=== PATIENT | female | born 1970 ===

== ENCOUNTER 2019-10-21 09:01 | Emergency (ER) | payer OTHER ==
--- NOTE | 2019-10-21 10:09 | ED Physician Documentation ---
PD HPI LOWER EXT INJURY - Stated complaint Stated Complaint: LT CALF PX - Chief complaint Chief Complaint: Ext Problem - History obtained from History obtained from: Patient - History of Present Illness PD HPI LOW EXT INJURY LOCATION: Left, Ankle (lateral aspect), Calf Type of injury: No: Fall, Twist, Blunt / blow Where injury occurred: Home Timing - onset: How many days ago (4) Timing - duration: Days (5) Timing - details: Gradual onset, Still present Improved by: Rest Worsened by: Moving (walking on foot, eversion of ankle, dorsiflexion of ankle.), Palpating Associated symptoms: Swelling. No: Weakness, Numbness, Discolored Similar symptoms before: Has not had sx before (not in that location. She had pain dorsum right foot of unknown cause about 1-2 years ago, that lasted several days and resolved.) Recently seen: Not recently seen Review of Systems Constitutional: denies: Fever, Chills, Myalgias Nose: denies: Rhinorrhea / runny nose, Congestion Throat: denies: Sore throat Respiratory: denies: Cough Skin: denies: Rash, Lesions, Abrasion (s) Musculoskeletal: denies: Back pain Neurologic: denies: Focal weakness, Numbness PD PAST MEDICAL HISTORY - Past Medical History Cardiovascular: None Respiratory: None Endocrine/Autoimmune: None Musculoskeletal: None - Present Medications Home Medications: Ambulatory Orders Medication Instructions Recorded Confirmed Hydrocodone/Acetaminophen [[place] 1 each PO Q6H PRN #15 tablet 10/21/19 5-325 Tablet] Naproxen 500 mg PO BID #20 tablet 10/21/19 dexAMETHasone [Decadron] 4 mg PO DAILY #5 tablet 10/21/19 - Allergies Allergies/Adverse Reactions: Allergies Allergy/AdvReac Type Severity Reaction Status Date / Time No Known Drug Allergies Allergy Verified 10/21/19 09:16 - Living Situation Living Arrangement: reports: At home PD ED PE NORMAL - Vitals Vital signs reviewed: Yes - General General: Alert and oriented X 3, Well developed/nourished - Neck Neck: Supple, no meningeal sign, No adenopathy - Cardiac Cardiac: RRR, No murmur - Respiratory Respiratory: Clear bilaterally - Back Back: No spinal TTP - Derm Derm: Normal color, Warm and dry, No rash - Extremities Extremities: No edema, Other (lateral left ankle and distal lower leg with tenderness but no redness, rash, sores. Achilles not tender. No effusion of ankle. ). No: Normal ROM s pain - Neuro Neuro: Alert and oriented X 3, No motor deficit, No sensory deficit Results - Vitals Vitals: Vital Signs - 24 hr 10/21/19 10/21/19 09:05 14:18 Temperature 36.5 C Heart Rate 78 80 Respiratory 16 14 Rate Blood Pressure 141/81 H 135/78 H O2 Saturation 97 98 Oxygen O2 Source Room air - Labs Labs: Laboratory Tests 10/21/19 10/21/19 12:00 12:00 WBC 7.5 RBC 4.37 Hgb 13.2 Hct 39.5 MCV 90.4 MCH 30.2 MCHC 33.4 RDW 12.2 Plt Count 253 MPV 9.5 Neut # (Auto) 6.2 Lymph # (Auto) 0.8 L [place] # (Auto) 0.4 Eos # (Auto) 0.1 Baso # (Auto) 0.1 Absolute Nucleated RBC 0.00 Nucleated RBC % 0.0 ESR 4 PD MEDICAL DECISION MAKING - ED course Complexity details: reviewed results, considered differential (tendonitis, can get duplex to eval for DVT. No rash to suggest shingles. No skin sores nor redness to suggest infection. Consider gout. ), d/w patient Departure - Departure Disposition: 01 Home, Self Care Clinical Impression: Peroneal tendonitis of left lower extremity Condition: Stable Record reviewed to determine appropriate education?: Yes Instructions: ED Sprain Ankle Prescriptions: dexAMETHasone [Decadron] 4 mg PO DAILY #5 tablet Hydrocodone/Acetaminophen [[place] 5-325 Tablet] 1 each PO Q6H PRN #15 tablet PRN Reason: Pain Naproxen 500 mg PO BID #20 tablet Comments: Use the ankle brace and crutches as needed for discomfort of movement and weightbearing. Progress weightbearing as tolerated over the next several days. Use anti-inflammatories as prescribed. Add Tylenol or hydrocodone if needed for pain. Recheck with your primary care if not improving well over the next 3 to 5 days and resolution by 5 to 7 days. Return if worsening or other symptoms. Discharge Date/Time: 10/21/19 14:19
[2019-10-21] MEDS ORDERED: IBUPROFEN 600 MG TABLET PO STA (10:27)
[2019-10-21] MEDS ORDERED: ACETAMINOPHEN 325 MG TABLET PO STA (10:27)
[2019-10-21] MEDS ORDERED: CHERRY SYRUP 10 ML UDC PO ONE (10:27)
[2019-10-21] MEDS ORDERED: DEXAMETHASONE 10 MG/ML VIAL PO STA (10:27)
--- NOTE | 2019-10-21 11:29 | Ultrasound Report ---
Reason: left ankle/lower leg pain Procedure Date: 10/21/2019 Accession Number: [id number] / [id number] Procedure: US - Duplex Ext Veins Left CPT Code: Final Report FULL RESULT: EXAM: LEFT LOWER EXTREMITY VENOUS ULTRASOUND EXAM DATE: 10/21/2019 11:03 AM. CLINICAL HISTORY: Left ankle/lower leg pain. COMPARISON: None. TECHNIQUE: Real-time sonographic vascular imaging was performed by the lockstitch topstitcher through the lower extremity utilizing both color-flow and Doppler spectral analysis. Multiple dealer compliance representative static images were saved for review. FINDINGS: Common Femoral Vein (CFV): Normal. CFV-GSV Junction: Normal. Profunda Femoral Vein (PFV): Normal. Femoral Vein (FV) Prox: Normal. Femoral Vein (FV) Mid: Normal. Femoral Vein (FV) Dist: Normal. Popliteal Vein: Normal. Posterior Tibial Veins: Normal. Peroneal Veins: Normal. Other: None. IMPRESSION: No evidence for deep venous thrombosis. RADIA
[2019-10-21 12:07] LABS: BASOPHILS # (AUTO) 0.1 10^3/uL (0.0-0.1); BASOPHILS % (AUTO) 0.7 %; EOSINOPHILS # (AUTO) 0.1 10^3/uL (0.0-0.7); EOSINOPHILS % (AUTO) 0.8 %; HGB - HEMOGLOBIN 13.2 g/dL (12.0-16.0); LYMPHOCYTES # (AUTO) 0.8 10^3/uL (1.5-3.5); LYMPHOCYTES % (AUTO) 10.7 %; MEAN CORPUSCULAR HEMOGLOBIN 30.2 pg (27.0-31.0); MEAN CORPUSCULAR HGB CONC 33.4 g/dL (32.0-36.0); MEAN CORPUSCULAR VOLUME 90.4 fL (81.0-99.0); MEAN PLATELET VOLUME 9.5 fL (7.9-10.8); MONOCYTES # (AUTO) 0.4 10^3/uL (0.0-1.0); MONOCYTES % (AUTO) 5.3 %; NEUTROPHILS # (AUTO) 6.2 10^3/uL (1.5-6.6); NEUTROPHILS % (AUTO) 82.2 %; PLT - PLATELET COUNT 253 10^3/uL (130-450); RED BLOOD COUNT 4.37 10^6/uL (4.20-5.40); RED CELL DISTRIBUTION WIDTH 12.2 % (12.0-15.0); WHITE BLOOD COUNT 7.5 x10^3/uL (4.8-10.8)
[2019-10-21 14:18] VITALS: BP 135/78
== END 2019-10-21 14:19 | disposition home or self-care (01) ==
LOC: ED 09:01
DX: M76.72 Peroneal tendinitis, left leg (principal)
CPT/HCPCS: 36415; 85025; 85651; 93971; 99284; A9270

== ENCOUNTER 2024-03-18 10:21 | Emergency (ER) | payer OTHER ==
[2024-03-18 10:38] VITALS: BP 113/92; O2SAT 99
--- NOTE | 2024-03-18 12:29 | ED Physician Documentation ---
PD HPI LOWER EXT INJURY - Stated complaint Stated Complaint: LT CALF PX/SWELLING - Chief complaint Chief Complaint: Ext Problem - History obtained from History obtained from: Patient - Additional information Additional information: Patient is a 53-year-old female without significant medical history presenting for evaluation of left calf pain since running a 5K 2 weeks ago. Denies fall. Has been having pain with ambulation. Last night noticed some swelling so went to the [facility] today and was directed to the ER for evaluation of a DVT. Denies history of prior DVTs or PE. Review of Systems Constitutional: denies: Fever Cardiac: denies: Chest pain / pressure Respiratory: denies: Dyspnea Musculoskeletal: reports: Extremity pain PD PAST MEDICAL HISTORY - Past Medical History Past Medical History: No Cardiovascular: None Respiratory: None Endocrine/Autoimmune: None Musculoskeletal: None - Past Surgical History Past Surgical History: Yes Ortho: Shoulder arthroplasty - Present Medications Home Medications: Ambulatory Orders Medication Instructions Recorded Confirmed No Known Home Medications 03/18/24 03/18/24 - Allergies Allergies/Adverse Reactions: Allergies Allergy/AdvReac Type Severity Reaction Status Date / Time No Known Drug Allergies Allergy Verified 03/18/24 10:29 - Social History Does the pt smoke?: No Smoking Status: Never smoker Does the pt drink ETOH?: Yes Does the pt have substance abuse?: No - Immunizations Immunizations are current?: Yes - POLST Patient has POLST: No PD ED PE NORMAL - General General: Alert and oriented X 3, No acute distress, Well developed/nourished - HEENT HEENT: Atraumatic, Moist mucous membranes, Pharynx benign - Neck Neck: Supple, no meningeal sign - Cardiac Cardiac: Strong equal pulses - Respiratory Respiratory: No respiratory distress - Derm Derm: Warm and dry - Extremities Extremities: Other (Mild tenderness to left calf, compartments of extremity are soft, distal pulses intact, no redness, Pain in calf with plantarflexion) - Neuro Neuro: No motor deficit, Normal speech Results - Vitals Vitals: Vital Signs - 24 hr 03/18/24 10:26 Temperature 36.4 C L Heart Rate 84 Respiratory 20 Rate Blood Pressure 113/92 H O2 Saturation 99 Oxygen O2 Source Room air PD Medical Decision Making - ED course Complexity details: reviewed results, d/w patient ED course: Patient with left calf pain for 2 weeks with mild swelling. Distal pulses intact and no signs of infection. Compartments of extremity are soft.No bony tenderness to suggest fracture. Ultrasound was obtained and is negative for DVT. Patient counseled on continued supportive care and was given Paul wrap and crutches here. She is advised on concerning symptoms to return for. Departure - Departure Disposition: 01 Home, Self Care Clinical Impression: Strain of left calf muscle Condition: Stable Instructions: ED Strain Muscle Ext Comments: Your U/S does not shows a blood clot called a DVT. Your symptoms are likely related to a muscle strain. We have applied an Paul wrap and also given you crutches so that you can try to stay off the leg over the next few days to see if this helps improve your symptoms. Continue with Acetaminophen or ibuprofen as needed for pain.Return to the ER with any worsening symptoms. Forms: PCP List Discharge Date/Time: 03/18/24 12:50
--- NOTE | 2024-03-18 13:54 | Ultrasound Report ---
PROCEDURE: Duplex Ext Veins Left INDICATIONS: L calf pain/swelling TECHNIQUE: Real-time imaging, as well as color and pulse Doppler interrogation, were performed of the lower extr emity deep veins from the inguinal ligament to the popliteal fossa. Attempted visualization of the ca lf veins was performed. COMPARISON: None. FINDINGS: The deep veins are normally compressible, and free of intraluminal thrombus. Color and pu lse Doppler demonstrate normal phasic intraluminal flow. There is normal augmentation response to di stal compression maneuver. IMPRESSION: No deep venous thrombosis of the visualized lower extremity. Reviewed by: Ba Spencer MD on 03/18/2024 1:53 PM PDT Approved by: Ba Spencer MD on 03/18/2024 1:53 PM PDT Station ID: [id number]
== END 2024-03-18 12:50 | disposition home or self-care (01) ==
LOC: ED 10:21
DX: S86.812A Strain of other muscle(s) and tendon(s) at lower leg level, left leg, initial encounter (principal); X58.XXXA Exposure to other specified factors, initial encounter
CPT/HCPCS: 99283; 99284